=== PATIENT | female | born 1975 | race African-American/Black ===

== ENCOUNTER 2016-12-06 06:01 | Observation (INO) | payer MEDICAID ==
[~2016-12-06] VITALS: Ht 165.1 cm; Wt 93.9 kg
[~2016-12-06 06:01] MED LIST: ARIP15TA2 PO; BUPR150T6 PO; FLUO20CA8 PO; HYDR25CA PO; OLAN10TA9 PO; QUET100T PO
[2016-12-06] MEDS ORDERED: ZIPRASIDONE 40MG CAPSULE PO STA (06:28)
[2016-12-06 06:44] LABS: DAU SCREEN DISCLAIMER
[2016-12-06 07:16] LABS: BLOOD UREA NITROGEN 11 mg/dL (7-18)
[2016-12-06 07:22] LABS: ACETAMINOPHEN < 2 mcg/mL (10-30)
[2016-12-06] MEDS ORDERED: DOCUSATE 100 MG CAPSULE PO PRN (10:00)
[2016-12-06] MEDS ORDERED: ONDANSETRON ODT 4 MG PO PRN (10:00)
[2016-12-06] MEDS ORDERED: BENZTROPINE 1 MG TABLET PO PRN (10:00)
[2016-12-06] MEDS ORDERED: ZIPRASIDONE 20 MG INJ IM PRN (10:00)
[2016-12-06] MEDS: SODIUM CHLORIDE NASAL SPRAY 45ML BOTTLE NAS SCH (10:37)
[2016-12-06 11:01] LABS: PATH.CAST-FLAG NOT PRESENT; SPERM-FLAG NOT PRESENT; SRC-FLAG NOT PRESENT; XTAL-FLAG NOT PRESENT; YLC-FLAG NOT PRESENT
[2016-12-06] MEDS ORDERED: FLUCONAZOLE 100 MG TABLET PO ONE (15:00)
[2016-12-06] MEDS ORDERED: ARIPIPRAZOLE 15 MG TABLET PO ONE (15:03)
[2016-12-06] MEDS ORDERED: ENOXAPARIN 40 MG/0.4 ML ONE (15:26)
[2016-12-06] MEDS: ENOXAPARIN 40 MG/0.4 ML SQ SCH (15:33)
[2016-12-06] MEDS: GUAIFENESIN 200 MG TABLET PO SCH ×2 (15:33→19:30)
[2016-12-07] MEDS: SODIUM CHLORIDE NASAL SPRAY 45ML BOTTLE NAS SCH (09:00)
[2016-12-07] MEDS: ARIPIPRAZOLE 15 MG TABLET PO SCH ×2 (09:00→16:21)
[2016-12-07 11:08] LABS: HIV 1&2 ANTIBODY SCREEN Nonreactive (Nonreactive); HIV-1 p24 ANTIGEN Nonreactive (Nonreactive)
[2016-12-07 12:21] LABS: HEPATITIS C VIRUS ANTIBODY Nonreactive (Nonreactive)
[2016-12-07] MEDS: ENOXAPARIN 40 MG/0.4 ML SQ SCH (13:00)
[2016-12-07 18:41] VITALS: BP 135/71
[2016-12-07] MEDS ORDERED: ACETAMINOPHEN 325 MG TABLET ONE ×2 (19:31→19:49)
[2016-12-07] MEDS: ACETAMINOPHEN 325 MG TABLET PO PRN ×2 (19:35→20:12)
== END 2016-12-08 01:12 | disposition home or self-care (01) ==
LOC: ED 07:45 → EDIP 09:35 → 4NOR 09:35 → UNDOADMOB 09:35 → ED 12-08 01:12
PROVIDERS: ADMIT Internal Medicine; ATTEND Internal Medicine
DX: F22 Delusional disorders (principal); R44.3 Hallucinations, unspecified; D64.9 Anemia, unspecified; E44.1 Mild protein-calorie malnutrition; J06.9 Acute upper respiratory infection, unspecified; F15.10 Other stimulant abuse, uncomplicated; F43.10 Post-traumatic stress disorder, unspecified; F17.210 Nicotine dependence, cigarettes, uncomplicated; F20.9 Schizophrenia, unspecified; N17.9 Acute kidney failure, unspecified; Z90.49 Acquired absence of other specified parts of digestive tract
CPT/HCPCS: 36415; 80048; 80074; 80307; 80329; 81001; 82040; 84703; 85025; 86703; 87086; 87210; 87491; 87591; 87808; 87899; 93005; 99285; G0378; G0435; G0480